=== PATIENT | male | born 1975 | race Caucasian/White ===

== ENCOUNTER → 2017-08-31 19:30 | Outpatient (CLI) | payer MEDICAID, SELFPAY ==
--- NOTE | 2017-08-31 19:50 | RAD_ITS ---
STUDY: X-RAY - LEFT ELBOW REASON FOR EXAM: Male, 42 years old. Left-sided elbow pain, swelling and bruising after falling. TECHNIQUE: 3 view(s) of the elbow. COMPARISON: Prior comparison studies are not available for review at this time. FINDINGS: Patient has had extensive surgery on the proximal radius with plates and screws. Bone anchor is visible within the lateral humeral condyle. The distal humerus has a grossly normal appearance otherwise. There is a well-corticated bone fragment located just caudal to the medial humeral epicondyle measuring 7.2 mm. This may be the result of previous fracture and could represent intra-articular loose body. There are multiple fractured screws within the proximal radius. The acuity of this is uncertain. There is degenerative arthrosis of the radiocapitellar and ulnotrochlear articulations. There is soft tissue swelling. There are anterior and posterior fat-pad signs of the suggesting a hemarthrosis. RAD/Elbow min 3 Views IMPRESSION: 1. Hemarthrosis of the left elbow suggests the presence of a fracture. However, patient has had extensive surgery on a fracture of the proximal radius. 2. There are multiple fractured orthopedic screws that could be acute. 3. 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 Electronically Signed: Nia Noriega MD at 11:12 EDT , Service support ,
[2017-08-31 21:37] LABS: Amphetamine Urine VISTA NEGATIVE (<1000 ng/mL); Barbiturate Urine VISTA NEGATIVE (< 200 ng/mL); Benzodiazepine Urine VISTA NEGATIVE (< 200 ng/mL); Cocaine Urine VISTA NEGATIVE (< 300 ng/mL); Ecstacy Urine VISTA NEGATIVE (< 500 ng/mL); Methadone Urine VISTA NEGATIVE (< 300 ng/mL); PCP Urine VISTA NEGATIVE (< 25 ng/mL); THC Urine VISTA NEGATIVE (< 50 ng/mL); Vista UDS pH Range 5
== END ==
PROVIDERS: Family Provider Anesthesiology; Visit Provider Anesthesiology
DX: M25.522 Pain in left elbow (principal); F11.20 Opioid dependence, uncomplicated
CPT/HCPCS: 73080; 80307

== ENCOUNTER → 2017-10-30 08:00 | Outpatient (CLI) | payer MEDICAID, SELFPAY | PROVIDERS: Visit Provider Anesthesiology | DX: M25.529 Pain in unspecified elbow (principal) ==

== ENCOUNTER → 2017-11-21 14:29 | Outpatient (CLI) | payer MEDICAID, SELFPAY ==
--- NOTE | 2017-11-21 14:33 | RAD_ITS ---
STUDY: X-RAY - LUMBAR SPINE REASON FOR EXAM: Male, 42 years old. Lower back pain. TECHNIQUE: 5 view(s) of the lumbar spine were obtained. COMPARISON: None FINDINGS: No significant scoliosis. Normal lordosis. Normal vertebral body height and alignment. Normal mineralization. Transverse processes intact. Spinous processes intact. No apparent facet arthropathy. The facet joints are normally aligned and intact. There is no disc narrowing. There are no significant endplate degenerative changes. No acute intra-abdominal process is evident. Normal appearance of the evaluated lower ribs, and evaluated portions of the upper medial pelvis and sacrum. No significant degenerative features of the SI joints. RAD/L/S Spine Min 4 Views IMPRESSION: No significant spondylosis. No evidence of traumatic injury. Electronically Signed: Jt Roberts, at 18:07 EDT Tel , Service support ,
== END ==
PROVIDERS: Visit Provider Anesthesiology
DX: M54.5 Low back pain (principal)
CPT/HCPCS: 72110

== ENCOUNTER → 2018-01-18 19:04 | Outpatient (CLI) | payer MEDICAID, SELFPAY ==
[2018-01-18 19:49] LABS: Amphetamine Urine VISTA NEGATIVE (<1000 ng/mL); Barbiturate Urine VISTA NEGATIVE (< 200 ng/mL); Benzodiazepine Urine VISTA NEGATIVE (< 200 ng/mL); Cocaine Urine VISTA NEGATIVE (< 300 ng/mL); Ecstacy Urine VISTA NEGATIVE (< 500 ng/mL); Methadone Urine VISTA NEGATIVE (< 300 ng/mL); PCP Urine VISTA NEGATIVE (< 25 ng/mL); THC Urine VISTA NEGATIVE (< 50 ng/mL); Vista UDS pH Range 6
== END ==
PROVIDERS: Visit Provider Anesthesiology
DX: F11.20 Opioid dependence, uncomplicated (principal)
CPT/HCPCS: 80307

== ENCOUNTER 2023-08-30 08:10 | Emergency (ER) | payer MEDICAID, SELFPAY ==
[2023-08-30] VITALS (9 sets, daily range): BP systolic 116–188; BP diastolic 70–179; PULSE 46–90; RESP 13–20; TEMP 36.1–36.6; O2SAT 96–100; BMI 27.5
--- NOTE | 2023-08-30 08:22 | EDS_ITS ---
HPI History of Present Illness Chief Complaint: Chest Pain Informant: patient Onset/Context/Timing Onset: Today Narrative Narrative: Patient presents with chest pressure that started approximately 20 minutes prior to arrival. He has been at work for several hours and felt normal this morning. He states he got lightheaded and dizzy with some chest pressure. He denies similar symptoms in the past. He does not take any medications on a regular basis. He denies any personal or family history of coronary artery disease. He has been tolerating his normal activities over the last couple weeks without difficulty. PFSH PFSH Medical History no medical history no medical history Allergy/AdvReac Type Severity Reaction Status Date / Time No Known Allergies Allergy Verified 08/30/23 08:16 Surgical History (Updated 08/30/23 @ 08:[address] Dyan Morton MD) History of elbow surgery Social History Smoking Status: Current every day smoker tobacco type: cigarettes ROS ROS ED Constitutional Constitutional ED: Denies chills or fever(s) Eyes Eyes: Denies discharge from eye(s) ENT ENT ED: Denies discharge from eye(s), rhinorrhea or sore throat Cardiovascular Cardiovascular: Reports chest pain; Denies palpitations Respiratory/Chest Respiratory/Chest: Denies cough or dyspnea Gastrointestinal Gastrointestinal: Denies abdominal pain, nausea or vomiting Genitourinary Genitourinary ED: Denies dysuria Musculoskeletal Musculoskeletal: Denies back pain or extremity pain Integumentary Denies Abrasions or rash Neurologic Neurologic: Denies headache(s) or weakness Psychiatric Psychiatric: Denies anxiety or depression Allergic/Immunologic Allergic/Immunologic ED: Denies lip swelling or urticaria EXAM Physical Exam Const Vital Signs: 08/30/23 08:11 08/30/23 08:15 08/30/23 08:34 Temperature 97.0 F L Temperature Source Temporal Pulse Rate 88 67 55 L Respiratory Rate 16 20 H 14 Blood Pressure 188/179 H 157/93 H 147/94 H Blood Pressure Mean 182 114 111 Pulse Ox 98 98 97 Oxygen Delivery Method Room Air Room Air Room Air 08/30/23 09:11 08/30/23 09:39 08/30/23 10:00 Temperature 97.5 F L Temperature Source Oral Pulse Rate 47 L 50 L 50 L Respiratory Rate 16 13 14 Blood Pressure 136/92 H 136/92 H 134/90 H Blood Pressure Mean 106 106 104 Pulse Ox 100 97 98 Oxygen Delivery Method Room Air Room Air Room Air 08/30/23 11:00 Temperature Temperature Source Pulse Rate 46 L Respiratory Rate 14 Blood Pressure 118/72 Blood Pressure Mean 87 Pulse Ox 98 Oxygen Delivery Method Room Air Positive well nourished and well developed General Appearance ED: well developed Eyes EOMs intact bilaterally Chest Wall inspection of chest normal and palpation of chest normal Resp normal respiratory effort and clear to auscultation bilaterally Cardio regular rate and regular rhythm GI soft to palpation and non-tender Extremity normal to inspection Neuro oriented x3 and no sensory deficits noted Motor Exam: strength 5/5 throughout Psych mental status grossly normal Skin no rashes or lesions noted Heart Score History: Slightly/Non-Suspicious ECG: Normal Age: >45 - <65 years Risk Factors: No Risk Factors Troponin: </= Normal Limit Score: 1 MDM MDM MDM Narrative Medical decision making narrative: Patient placed on cardiac/vascular sonographer. EKG obtained to evaluate for cardiac arrhythmia/ischemia. IV line established. Labwork obtained to evaluate for leukocytosis, anemia, and electrolyte derangement. Chest x-ray obtained to evaluate for acute lung pathology, cardiac size, or mediastinal abnormality. Patient given aspirin on arrival. History & Record Review Discussion w/independent historian: Patient Lab Data Attestation: I reviewed the patient's lab results. Labs: Laboratory Results - last 24 hr 08/30/23 08/30/23 08:30 10:58 WBC 7.7 RBC 5.17 Hgb 16.4 Hct 48.1 MCV 93.0 MCH 31.7 MCHC 34.1 RDW Std Deviation 42.6 RDW Coeff of Vandana 12.4 Plt Count 223 MPV 10.9 Immature Gran % (Auto) 0.400 Neut % (Auto) 51.2 Lymph % (Auto) 32.1 Parke % (Auto) 13.2 H Eos % (Auto) 2.5 Baso % (Auto) 0.6 Absolute Neuts (auto) 4.0 Absolute Lymphs (auto) 2.48 Nucleated RBC % 0 D-Dimer Quant (PE/DVT) < 0.27 L Sodium 134 L Potassium 4.1 Chloride 105 Carbon Dioxide 26.0 Anion Gap 3 L BUN 14 Creatinine 1.12 Estim Creat Clear Calc 101.65 Est GFR (MDRD) Af Amer 90 Est GFR (MDRD) Non-Af 74 BUN/Creatinine Ratio 12.5 Glucose 101 Calcium 9.8 Troponin I High Sens 4 4 Radiography Chest X-Ray - ED: 1 View, Read by ED Physician, Normal, Heart, Lungs and Media stinum Diagnostic Testing: Clinical Impression(s) from Imaging Studies Chest X-Ray 08/30/23 08:35 IMPRESSION: Normal x-ray examination of the chest. Electronically Signed: Leo Cordoba MD at 8:57 EDT , EKG Initial EKG: Attestation: I personally reviewed and interpreted this EKG as follows: Interpretation: Sinus Rhythm (Sinus at 62 with no acute ischemia.) Treatment and Re-Evaluation :: CBC was normal white count 7.7 with a hemoglobin of 16.4. Normal differential. Chemistry studies unremarkable. D-dimer is less than 0.27. Initial troponin is normal at 4 with a 2-hour repeat troponin of 4. Portable chest x-ray per my interpretation reveals no acute findings. Radiology interpretation reviewed and agrees. EKG is sinus rhythm with no evidence of ischemia. Patient does have resting bradycardia but is asymptomatic with this. Test results discussed with patient and spouse at bedside. I will refer him to local primary care physician for follow-up, but do not feel that he needs to be admitted at this time for further evaluation. Has been up ambulating in the ER without difficulty. Discharge Plan Triage Chief Complaint: Chest Pain ED Provider: Dyan Morton Dx/Rx/DC Orders Clinical Impression: Chest pain Instructions: ED Chest Pain, Uncertain Cause Stand Alone Forms: Work / School Excuse Primary Care Provider: Care Physician,No Primary Referrals: Margareth Durand DO [Med Staff - Active Staff] - As Needed Care Physician,No Primary [Primary Care Provider] - Disposition Disposition: Home, Self Care
[2023-08-30] MEDS: Aspirin 81 MG TAB.CHEW 324 MG PO (08:33)
--- NOTE | 2023-08-30 08:35 | RAD_ITS ---
STUDY: X-RAY CHEST REASON FOR EXAM: Male, 48 years old. Chest pain TECHNIQUE: Single AP portable view of the chest. COMPARISON: None. FINDINGS: EKG electrodes are seen. The lungs are clear and expanded. There is no demonstrated pleural abnormality. Normal size heart. Normal mediastinum and mario alberto. Normal visualized pulmonary arteries. Normal visualized aortic arch and descending thoracic aorta. Normal visualized thoracic spine. Normal visualized ribs, clavicles, and shoulders. There is no demonstrated abnormality of the visualized soft tissue structures of the upper abdomen. RAD/Chest 1 View (Portable) IMPRESSION: Normal x-ray examination of the chest. Electronically Signed: Leo Cordoba MD at 8:57 EDT ,
[2023-08-30 08:52] LABS: Absolute Lymphocyte Count 2.48 X10^3/uL (0.83-4.51); Basophil# 0.05 X10^3/uL; Basophil% 0.6 % (0-1); Eosinophil# 0.19 X10^3/uL; Eosinophils% 2.5 % (0-5); Hematocrit 48.1 % (40-54); Hemoglobin 16.4 g/dL (13.0-16.5); Lymphocyte # 2.48 X10^3/ul (0.83-4.51); Lymphocyte % 32.1 % (19-41); Mean Corp Hgb Conc 34.1 g/dL (32-36); Mean Corpuscular Hgb 31.7 pg (27.0-32.0); Mean Platelet Vol. 10.9 fl (6.2-12.0); Monocyte# 1.02 X10^3/uL; Monocyte% 13.2 % (0-10); NRBC Flagged by Analyzer 0 % (0-5); Neutrophil # 3.95 X10^3/uL (2.7-7.7); Neutrophil % 51.2 % (47-70); Platelet Count 223 K/mm3 (150-450); RBC Distribution Width CV 12.4 % (11.6-14.6); RBC Distribution Width SD 42.6 fl (35.1-43.9); Red Blood Count 5.17 M/mm3 (4.6-6.2); White Blood Count 7.7 K/mm3 (4.4-11.0)
[2023-08-30 09:10] LABS: D-Dimer Quantitative (DVT/PE) < 0.27 FEU/ug/m (0.27-0.49)
[2023-08-30 09:14] LABS: Anion Gap 3 (5-15); BUN 14 mg/dL (7-18); BUN/Creat Ratio 12.5 RATIO (10-20); Calcium,Total 9.8 mg/dL (8.5-10.1); Chloride 105 mmol/L (98-107); Creatinine, Serum 1.12 mg/dL (0.70-1.30); EST Glomerular Filtration Rate 74 mL/min (>60); Est Glom Filt Rate - Afr Amer 90 mL/min (>60); Estimated Creatinine Clearance 101.65 ml/min; Glucose 101 mg/dL (74-106); Potassium 4.1 mmol/L (3.5-5.1); Sodium Level 134 mmol/L (136-145); Troponin-I HS (w/2H Reflex) 4 pg/mL (3.0-78.0)
[2023-08-30 10:42] LABS: Reflex Troponin-HS? (from REC) Y
[2023-08-30 11:30] LABS: Troponin-I HS 4 pg/mL (3.0-78.0)
== END 2023-08-30 12:25 | disposition home or self-care (01) ==
PROVIDERS: Emergency Provider Emergency Medicine; Visit Provider Emergency Medicine
DX: R07.9 Chest pain, unspecified (principal); F17.210 Nicotine dependence, cigarettes, uncomplicated
CPT/HCPCS: 71045; 80048; 84484; 85025; 85379; 93005; 99284; A4216